=== PATIENT | male | born 2000 | race Caucasian/White ===

== ENCOUNTER 2023-05-04 15:47 | Emergency (ER) | payer MEDICAID, SELFPAY ==
[2023-05-04 15:54] VITALS: BP 138/89; PULSE 88; RESP 20; TEMP 37.3; O2SAT 98; BMI 22.3
--- NOTE | 2023-05-04 16:59 | ED.GENADULT ---
HPI - General Adult General Date Seen: 05/04/23 Chief complaint: Animal Bite Stated complaint: Cat bite on both hands, possible infection Time Seen by Provider: 05/04/23 15:53 History of Present Illness HPI narrative: This is a pleasant, generally healthy 22-year-old male presenting to the ER today for cat bites and scratches affecting both of his hands and forearms. His family has multiple cats and 1 of the cats is a nude male. It does not get along with other cats in the household stool typically they keep it in a separate room from the other CT. Yesterday as they were changing the cats from room to room the troublesome cat got into a coral with another CT. He tried to break up the fight and the male then bit and scratched him. He has multiple scratches on his right volar forearm, multiple scratches on his right hand and a small puncture wound on the dorsum of the right hand over the dorsum of the 1st metacarpal. He also has a long linear scratch spreading from the volar side of his left wrist, around the radial side to the dorsal side of his wrist at the base of his left thumb. He noted that yesterday he developed significant redness and swelling on the dorsum of his right hand within a few hours of the bites and scratches. The redness is not really spread proximal to the dorsum of his hand. His right hand feels a bit tense on the back and he has little bit of tightness and discomfort when he tries to make a fist but he is able to fully flex his MCP, PIP, DI P joints. No associated numbness or tingling. Also he has noted that he has a lot of pain whenever he tries to ulnar deviate his right wrist the pain is at the area where the scratches at the base of the thumb. There is a long linear scratch there he does not think there is a cat bite or a deep penetrating injury. He is confident there is no retained foreign bodies or CT clots or teeth leftover any of his wounds. He did do wound care yesterday by washing his hands under water and applying alcohol to the wounds. Noting increasing redness, he is worried about infection so came to the ER this afternoon. He is also worried that there may be an injury to a nerve or tendon in his left thumb because of how much pain he has when he tries to deviate his wrist in the ulnar direction. He is otherwise healthy. No diabetes or immunosuppression. He is unsure of his last tetanus. Related Data Previous Rx's Medication Instructions Recorded amoxicillin 875 mg-potassium 1 tab PO BID #20 tabs 05/04/23 clavulanate 125 mg tablet hydrocodone 5 mg-acetaminophen 325 1 - 2 tab PO Q6H PRN pain #14 tabs 05/04/23 mg tablet Allergies Allergy/AdvReac Type Severity Reaction Status Date / Time No Known Drug Allergies Allergy Verified 05/04/23 15:53 Exam Narrative: Exam Narrative: Constitutional: Appears well-developed and well-nourished. Alert. Conversant. Non toxic. HENT: Head: Atraumatic. Nose: Nose normal. Mouth/Throat: Oral mucosa is clear and moist. no trismus. Pharynx normal. Tonsils symmetric. No tonsillar enlargement, erythema, or exudate. Eyes: Conjunctivae normal. EOM normal. Pupils equal, round, and reactive to light. No scleral icterus. Neck: Normal range of motion. Neck supple. No tracheal deviation present. Cardiovascular: Normal rate, regular rhythm. No gallop. No friction rub. No murmur heard. Symmetric radial artery pulses Pulmonary/Chest: Effort normal. No stridor. No respiratory distress. No wheezes. No rales. No rhonchi . No tenderness. Abdominal: Soft. Bowel sounds normal. No distension. No mass. No tenderness. No rebound. No guarding. Musculoskeletal: RUE: Normal range of motion. No tenderness. No deformity LUE: He has a linear abrasion on the left wrist. It extends from the volar aspect of the wrist and wraps around the radial side of the wrist to the dorsum at the base of the thumb. It does not seem to penetrate through the dermis. There is roughly 1 cm of erythema along the abrasion. No visible or palpable foreign body. He does have intact thumb extension, flexion, opposition. He does have intact sensory function in the radial nerve distribution but says he has some pain and tingling when he tries to ulnarly deviate his left wrist. No other pain in left wrist. No other widespread swelling. He has scattered other superficial scratch nicolas on his hand and forearm without much surrounding erythema.otherwise normal range of motion in his elbow, shoulder, thumb, fingers. Intact median and ulnar nerve sensory and motor function. RLE: Normal range of motion in his shoulder, elbow, wrist. He has multiple linear scratch nicolas on his volar forearm with tiny amount of erythema around them. He has several scratch nicolas and what appears to be more of a puncture wound on the dorsum of his right hand. There is definitely swelling and erythema affecting most of the dorsum of the right hand from the knuckles down to the extensor skin crease at the wrist. No redness or ascending lymphangitis spreading proximally. No palpable fluctuance. The dorsum of the hand is mildly tender. Palmar surface is normal. Intact range of motion in the thumb MCP, IP joint, intact range of motion in the finger MCP, PA PE, D IP joints. LLE: Normal range of motion. No edema. No tenderness. No deformity Lymph: No cervical adenopathy. Neurological: Alert and oriented to person, place, and time. Normal strength. CN II-VII intact. No sensory deficit. GCS eye subscore is 4. GCS verbal subscore is 5. GCS motor subscore is 6. Normal coordination Skin: Skin is warm and dry. No rash noted. No pallor. Normal capillary refill. Psychiatric: Normal mood. Normal affect. Const: Vital Signs, click to edit/add: Vital Signs - 24 hr 05/04/23 15:54 Temperature 99.1 F Pulse Rate [Pulse Oximeter] 88 Respiratory Rate 20 Blood Pressure [Le ft Forearm] 138/89 Pulse Oximetry 98 Oxygen Delivery Me thod Room Air Course Vital Signs Vital signs: Initial Vital Signs Temperature 99.1 F 05/04/23 15:54 Temperature Source Temporal Artery Scan 05/04/23 15:54 Pulse Rate 88 05/04/23 15:54 Pulse Rhythm Regular 05/04/23 15:54 Respiratory Rate 20 05/04/23 15:54 Blood Pressure 138/89 05/04/23 15:54 Blood Pressure Mean 105 05/04/23 15:54 Blood Pressure Position Sitting 05/04/23 15:54 Pulse Oximetry 98 05/04/23 15:54 Oxygen Delivery Method Room Air 05/04/23 15:54 Vital Signs Temperature 99.1 F 05/04/23 15:54 Pulse Rate 88 05/04/23 15:54 Respiratory Rate 20 05/04/23 15:54 Blood Pressure 138/89 05/04/23 15:54 Pulse Oximetry 98 05/04/23 15:54 Oxygen Delivery Method Room Air 05/04/23 15:54 Temperature 99.1 F 05/04/23 15:54 Pulse Rate 88 05/04/23 15:54 Respiratory Rate 20 05/04/23 15:54 Blood Pressure 138/89 05/04/23 15:54 Pulse Oximetry 98 05/04/23 15:54 Oxygen Delivery Method Room Air 05/04/23 15:54 Medical Decision Making MDM Narrative Medical decision making narrative: Patient presents with multiple cat bites and scratches affecting both of his hands. On the right hand there are scratches and what appears to be a small puncture wound probably a bite and there is clearly a cellulitis affecting the dorsum of the right hand. At this point the patient is afebrile, nontoxic. He is immunocompetent. I do not appreciate any fluctuance or any signs of abscess in the hand. At this point I do not think he needs to be admitted for IV antibiotics or transferred for hand surgery consultation. However he clearly does require initiation of antibiotic therapy. He will start his 1st dose of Augmentin this evening. He also has a linear abrasion at the base of the left thumb on the wrist. He feels a lot of pain when he tries to ulnar deviate his left wrist. This appears to affect the structures of the base of his thumb, possibly the extensor pollicis longus tendon or a branch of the radial nerve. At this point I do not think he needs x-rays, or transfer for surgical exploration. We placed into a velcro thumb spica splint for comfort and will monitor this carefully. There is no evidence at this time to suggest any associated fracture or foreign body. Otherwise the patient is neurovascularly intact. He will need close outpatient follow-up with orthopedics to re-evaluate his left thumb and the potential infection on his right hand. Indications to seek urgent reevaluation and signs of worsening infection (including but not limited to increasing pain, redness, swelling, fevers, and drainage) were reviewed. Tetanus is updated today. He believes his cat is vaccinated against rabies and he does not think his CT was rapid. He will monitor the cat for 10 days and if he gets sick he will have it tested at the [facility] lab. Since the patient is highly confident that his cat is not rapid, it is entirely reasonable to hold off on any post exposure rabies prophylaxis in this situation. An understanding of the discharge instructions and need for follow up were verbally confirmed. Discharge Plan Discharge Clinical Impression: Cellulitis, Cat bite Patient Disposition: Home, Self-Care Condition: Stable Instructions: Animal Bite (ED), Cellulitis (ED) Additional Instructions: The antibiotics we are prescribing for her infection will typically take 1-2 days before you start to see improvement. Monitor the swollen, red area. If it gets larger or if you have worsening pain, increasing swelling, high fevers, please come back to the ER right away to be rechecked. Wear the splint on your left wrist and thumb to protect the injured area for the next few days. We are concerned that there may be an injury to the radial nerve or to the tendon that moves her thumb. It is not completely improve within 3 days, recheck but the [facility]. Using all [phone] on Saturday morning to schedule a follow-up appointment. Remember, if this gets worse, you can come back to the ER right away this weekend. Monitor your CT for at least 10 days to watch for any signs of illness. If your cat gets sick, you should have it checked for rabies. We updated your tetanus status today. Use Tylenol or ibuprofen if needed for pain. If you have bad pain that is not controlled by those medications, use [place] . Be careful with his prescription pain killer because it can cause drowsiness, sedation, constipation, and can be addictive. Prescriptions: New amoxicillin-pot clavulanate 875-125 mg tablet 1 tab PO BID Qty: 20 0RF hydrocodone-acetaminophen 5-325 mg tablet 1 - 2 tab PO Q6H PRN (Reason: pain) Qty: 14 0RF Follow Up/Referrals: Abdiaziz Gilliland MD [Primary Care Provider] - Stand Alone Forms: [employer] Info Instructions
[2023-05-04] MEDS: TETANUS/DIPHTH/PERTUSSIS 0.5 ML SYRINGE IM (17:06)
== END 2023-05-04 17:18 | disposition home or self-care (01) ==
PROVIDERS: Emergency Provider Emergency Medicine; PCP Family Medicine
DX: L03.113 Cellulitis of right upper limb (principal); L03.114 Cellulitis of left upper limb; W54.0XXA Bitten by dog, initial encounter
CPT/HCPCS: 90471; 90715; 99283